=== PATIENT | female | born 2000 | race Caucasian/White ===

== ENCOUNTER 2022-12-17 16:45 | Emergency (ER) | payer BC ==
[2022-12-17] MEDS ORDERED: Lidocaine 1% PF 5 ML VIAL ONE (17:44)
[2022-12-17] MEDS ORDERED: Proctozone-HC 30 GM TUBE TOP SCH (18:15)
== END 2022-12-17 18:42 | disposition home or self-care (01) ==
LOC: ERS 16:45
DX: K64.4 Residual hemorrhoidal skin tags (principal)
CPT/HCPCS: 99282